=== PATIENT | female | born 1970 | race Hispanic/Latino ===

== ENCOUNTER 2018-10-08 20:20 | Inpatient (IN) | payer SELFPAY ==
[2018-10-08] MEDS ORDERED: LEVALBUTEROL 1.25 MG/3 ML NEB ONE ×2 (20:35→20:36)
[2018-10-08] MEDS ORDERED: DEXAMETHASONE 4 MG/ML VIAL ONE (20:39)
[2018-10-08] MEDS ORDERED: ALBUTEROL 2.5 MG/3 ML NEB SOL ONE (20:39)
[2018-10-08] MEDS ORDERED: IPRATROPIUM BROM 0.5MG/2.5ML ONE (20:40)
[2018-10-08] MEDS ORDERED: CEFTRIAXONE/SWI 1gm 1 GM/10 ML SYR ONE (20:40)
[2018-10-08] MEDS ORDERED: AZITHROMYCIN 500 MG/250 ML BAG ONE (20:41)
[2018-10-08] MEDS ORDERED: METHYLPREDNISOLONE 125 MG INJ ONE (20:41)
--- NOTE | 2018-10-08 20:41 | EDPHYS ---
Physician Documentation [facility] Name: Katelyn Calderón Age: 47 yrs Sex: Female : 1970 Arrival Date: 10/08/2018 Time: 20:21 Bed 3 Private MD: ED Physician Ky Díaz HPI: 10/08 20:31 This 47 yrs old Female presents to ER via Unassigned with complaints of khalida asthma, dyspnea. 20:31 The patient has shortness of breath at rest, with light activity. Onset: The khalida symptoms/episode began/occurred today. Duration: The symptoms are continuous, and are steadily getting worse. The patient's shortness of breath is aggravated by exertion, light activity, supine position, talking, walking, is alleviated by inhaler, nebulizer treatment, rest, sitting up, application of supplemental oxygen. The patient or guardian reports cough, difficulty breathing. Onset: The symptoms/episode began/occurred 1 day(s) ago. Modifying factors: The symptoms are alleviated by changing position, the symptoms are aggravated by nothing. Associated signs and symptoms: The patient has no apparent associated signs or symptoms. Severity of symptoms: At their worst the symptoms were moderate in the emergency department the symptoms are unchanged. Historical: - Allergies: 20:40 No Known Allergies; ea - Home Meds: 20:40 Ventolin HFA 90 mcg/actuation Nebulizer HFAA [Active]; Albuterol Nebulizer [Active]; ea - PSHx: 20:41 ; ea - Immunization history:: Adult Immunizations up to date. - Social history:: Smoking status: Patient/guardian denies using tobacco. - Family history:: not pertinent. - Ebola Screening: : No symptoms or risks identified at this time. ROS: 20:31 Constitutional: Negative for fever, chills, and weight loss, Eyes: Negative for injury, khalida pain, redness, and discharge, ENT: Negative for injury, pain, and discharge, Neck: Negative for injury, pain, and swelling, Cardiovascular: Negative for chest pain, palpitations, and edema, Abdomen/GI: Negative for abdominal pain, nausea, vomiting, diarrhea, and constipation, Back: Negative for injury and pain, : Negative for injury, bleeding, discharge, and swelling, MS/Extremity: Negative for injury and deformity, Skin: Negative for injury, rash, and discoloration, Neuro: Negative for headache, weakness, numbness, tingling, and seizure, Psych: Negative for depression, anxiety, suicide ideation, homicidal ideation, and hallucinations, Allergy/Immunology: Negative for hives, rash, and allergies, Endocrine: Negative for neck swelling, polydipsia, polyuria, polyphagia, and marked weight changes. 20:31 Respiratory: Positive for cough, shortness of breath, wheezing, inspiratory, expiratory. Exam: 20:31 Constitutional: This is a well developed, well nourished patient who is awake, alert, khalida and in no acute distress. Head/Face: Normocephalic, atraumatic. Eyes: Pupils equal round and reactive to light, extra-ocular motions intact. Lids and lashes normal. Conjunctiva and sclera are non-icteric and not injected. Cornea within normal limits. Periorbital areas with no swelling, redness, or edema. ENT: Nares patent. No nasal discharge, no septal abnormalities noted. Tympanic membranes are normal and external auditory canals are clear. Oropharynx with no redness, swelling, or masses, exudates, or evidence of obstruction, uvula midline. Mucous membranes moist. Neck: Trachea midline, no thyromegaly or masses palpated, and no cervical lymphadenopathy. Supple, full range of motion without nuchal rigidity, or vertebral point tenderness. No Meningismus. Chest/axilla: Normal chest wall appearance and motion. Nontender with no deformity. No lesions are appreciated. Cardiovascular: Regular rate and rhythm with a normal S1 and S2. No gallops, murmurs, or rubs. Normal PMI, no JVD. No pulse deficits. Abdomen/GI: Soft, non-tender, with normal bowel sounds. No distension or tympany. No guarding or rebound. No evidence of tenderness throughout. Back: No spinal tenderness. No costovertebral tenderness. Full range of motion. Female : Normal external genitalia. Skin: Warm, dry with normal turgor. Normal color with no rashes, no lesions, and no evidence of cellulitis. MS/ Extremity: Pulses equal, no cyanosis. Neurovascular intact. Full, normal range of motion. Neuro: Awake and alert, GCS 15, oriented to person, place, time, and situation. Cranial nerves II-XII grossly intact. Motor strength 5/5 in all extremities. Sensory grossly intact. Cerebellar exam normal. Normal gait. Psych: Awake, alert, with orientation to person, place and time. Behavior, mood, and affect are within normal limits. 20:31 Respiratory: mild respiratory distress is noted, moderate respiratory distress is noted, Respirations: normal, no acute changes, Breath sounds: are clear throughout, bronchial sounds, that are mild, decreased breath sounds, that are mild, rhonchi, that are mild. Vital Signs: 20:30 BP 109 / 66; Pulse 135; Resp 25; Temp 99.8(A); Pulse Ox 100% 4% ; Weight 63.5 kg; ea Height 5 ft. (152.40 cm); 21:00 BP 112 / 73; Pulse 127; Resp 17; Pulse Ox 100% on Nebulizer Mask; ea 22:45 BP 104 / 56; Pulse 105; Resp 17; Temp 97.6; Pulse Ox 96% ; Pain 0/10; ea 20:30 Body Mass Index 27.34 (63.50 kg, 152.40 cm) ea MDM: 20:26 Patient medically screened. [facility] 20:34 Data reviewed: vital signs, nurses notes, lab test result(s), EKG, radiologic studies, khalida plain films. 10/08 20:31 Order name: Basic Metabolic Panel; Complete Time: 22:08 [facility] 10/08 20:31 Order name: CBC with Diff; Complete Time: 22:08 [facility] 10/08 20:31 Order name: LFT's; Complete Time: 22:08 [facility] 10/08 20:31 Order name: Magnesium; Complete Time: 22:08 [facility] 10/08 20:31 Order name: NT PRO-BNP; Complete Time: 22:08 [facility] 10/08 20:31 Order name: PT-INR; Complete Time: 22:08 [facility] 10/08 20:31 Order name: Troponin (emerg Dept Use Only); Complete Time: 22:08 [facility] 10/08 20:31 Order name: XRAY Chest (1 view) [facility] 10/08 20:31 Order name: Blood Culture Adult (2) [facility] 10/08 21:22 Order name: Flu ms 10/08 22:08 Order name: Influenza Screen (A ; Complete Time: 22:08 EDMS 10/08 20:31 Order name: EKG; Complete Time: 20:40 [facility] 10/08 20:31 Order name: Cardiac monitoring; Complete Time: 20:44 [facility] 10/08 20:31 Order name: EKG - Nurse/Tech; Complete Time: 20:44 [facility] 10/08 20:31 Order name: IV Saline Lock; Complete Time: 20:44 [facility] 10/08 20:31 Order name: Labs collected and sent; Complete Time: 21:04 [facility] 10/08 20:31 Order name: O2 Per Protocol; Complete Time: 20:44 [facility] 10/08 20:31 Order name: O2 Sat Monitoring; Complete Time: 20:44 [facility] 10/08 20:31 Order name: Urine Dipstick-Ancillary (obtain specimen); Complete Time: 23:03 [facility] 10/08 20:31 Order name: Urine Test (obtain specimen); Complete Time: 23:03 [facility] 10/08 20:44 Order name: CONS Physician Consult EDMS Administered Medications: 20:30 Drug: Xopenex (3) 1.25 mg Route: Inhalation; ea 21:02 Follow up: Response: Marked relief of symptoms; Wheezing diminished ea 20:40 Drug: SOLU-Medrol 125 mg Route: IVP; Site: right antecubital; ea 21:30 Follow up: Response: No adverse reaction rr5 20:40 Drug: Decadron - Dexamethasone 10 mg Route: IVP; Site: right antecubital; ao 21:30 Follow up: Response: No adverse reaction ea 20:51 Not Given (HR 135. Ordered different medications ): Albuterol - atroVENT (3:1) (2.5 mg ao - 0.5 mg) 3 ml Nebulizer once 20:52 Drug: Zofran 4 mg Route: IVP; Site: right antecubital; ao 21:30 Follow up: Response: No adverse reaction; Nausea is increased ea 20:55 Drug: Rocephin - (cefTRIAXone) 1 grams Route: IVPB; Infused Over: 30 mins; Site: right ea antecubital; 21:30 Follow up: Response: No adverse reaction; IV Status: Completed infusion rr5 20:55 Drug: AtroVENT Aerosol 0.5 mg {Note: BY RT.} Route: Inhalation; ao 21:02 Drug: Zithromax 500 mg Route: IVPB; Infused Over: 1 hrs; Site: right antecubital; ea 22:47 Follow up: Response: No adverse reaction; IV Status: Completed infusion rr5 22:28 Drug: Potassium Effervescent Tablet 25 mEq Route: PO; ea 23:00 Follow up: Response: No adverse reaction ea Disposition: 10/08/18 20:40 Hospitalization ordered by Wilber Sahni for Inpatient Admission. Preliminary diagnosis are Asthma, Dyspnea, Hypokalemia. - Bed requested for Telemetry/MedSurg (Inpatient). - Status is Inpatient Admission. ea - Condition is Stable. - Problem is new. - Symptoms have improved. UTI on Admission? No Signatures: Dispatcher [employer] EDMS Haley Recinos RN RN Ky Bonilla MD MD cha Ortiz, Alex, RN RN Chiqui Johansen RN Geovanny Pompa ea, RN rr5 Corrections: (The following items were deleted from the chart) 22:10 20:40 Hospitalization Ordered by Wilber Sahni MD for Inpatient Admission. Preliminary [facility] diagnosis is Asthma; Dyspnea. Bed requested for Telemetry/MedSurg (Inpatient). Status is Inpatient Admission. Condition is Stable. Problem is new. Symptoms have improved. UTI on Admission? No. khalida 22:35 22:10 10/08/2018 20:40 Hospitalization Ordered by Wilber Sahni MD for Inpatient kl Admission. Preliminary diagnosis is Asthma; Dyspnea; Hypokalemia. Bed requested for Telemetry/MedSurg (Inpatient). Status is Inpatient Admission. Condition is Stable. Problem is new. Symptoms have improved. UTI on Admission? No. khalida 23:15 22:35 10/08/2018 20:40 Hospitalization Ordered by Wilber Sahni MD for Inpatient ea Admission. Preliminary diagnosis is Asthma; Dyspnea; Hypokalemia. Bed requested for Telemetry/MedSurg (Inpatient). Status is Inpatient Admission. Condition is Stable. Problem is new. Symptoms have improved. UTI on Admission? No. adrienne
--- NOTE | 2018-10-08 20:41 | ER ---
Nurse's Notes [facility] Name: Katelyn Calderón Age: 47 yrs Sex: Female : 1970 Arrival Date: 10/08/2018 Time: 20:21 Bed 3 Private MD: Diagnosis: Asthma;Dyspnea;Hypokalemia Presentation: 10/08 20:30 Presenting complaint: EMS states: Called to pt's home family reported pt was ea complaining of having a hard time breathing that started around 5 PM and got worse. EMS noted stridor , pt sats decreased when placed on 4 L of n/c, pt was placed on non rebreathe. 20:36 Transition of care: patient was not received from another setting of care. Onset of ea symptoms was October 08, 2018. Risk Assessment: Do you want to hurt yourself or someone else? Patient reports no desire to harm self or others. Initial Sepsis Screen: Does the patient meet any 2 criteria? RR > 20 per min. Temp <36.0*C (96.8*F)) or > 38.3*C (100.9*F). HR > 90 bpm. Does the patient have a suspected source of infection? No. Patient's initial sepsis screen is negative. Care prior to arrival: albuterol and Atrovent, non rebreather. 20:36 Method Of Arrival: EMS: [facility] ea 20:36 Acuity: ZAK 2 ea Historical: - Allergies: 20:40 No Known Allergies; ea - Home Meds: 20:40 Ventolin HFA 90 mcg/actuation Nebulizer HFAA [Active]; Albuterol Nebulizer [Active]; ea - PSHx: 20:41 ; ea - Immunization history:: Adult Immunizations up to date. - Social history:: Smoking status: Patient/guardian denies using tobacco. - Family history:: not pertinent. - Ebola Screening: : No symptoms or risks identified at this time. Screenin:35 Abuse screen: Denies threats or abuse. Nutritional screening: No deficits noted. ea Tuberculosis screening: No symptoms or risk factors identified. Fall Risk None identified. Assessment: 20:22 General: Appears distressed, uncomfortable, ill, Behavior is cooperative, appropriate rr5 for age. Pain: Denies pain. 20:22 Neuro: Level of Consciousness is awake, alert, obeys commands, Oriented to person, rr5 place, time, situation, Appropriate for age Underwater Welder are equal bilaterally Moves all extremities. Full function Gait is steady, Speech. Cardiovascular: Denies chest pain, Capillary refill < 3 seconds Patient's skin is warm and dry. Respiratory: Airway is patent is compromised Respiratory effort is labored, Respiratory pattern is tachypnea Stridor noted. GI: Abdomen is round. : No signs and/or symptoms were reported regarding the genitourinary system. EENT:. Derm: Skin is intact, Skin is dry, Skin is pink, warm \T\ dry. Musculoskeletal: No signs and/or symptoms reported regarding the musculoskeletal system. Circulation, motion, and sensation intact. Capillary refill < 3 seconds, Range of motion: intact in all extremities. 21:37 Reassessment: Patient and/or family updated on plan of care and expected duration. Pain ea level reassessed. Patient is alert, oriented x 3, equal unlabored respirations, skin warm/dry/pink. Patient states feeling better. Patient states symptoms have improved. 22:35 Reassessment: Patient and/or family updated on plan of care and expected duration. Pain rr5 level reassessed. Patient is alert, oriented x 3, equal unlabored respirations, skin warm/dry/pink. Patient states feeling better. Patient states symptoms have improved. 22:43 Reassessment: Report given to Jannette WITT. rr5 23:00 Reassessment: Patient and/or family updated on plan of care and expected duration. Pain ea level reassessed. Patient is alert, oriented x 3, equal unlabored respirations, skin warm/dry/pink. Patient states feeling better. Patient states symptoms have improved. Vital Signs: 20:30 BP 109 / 66; Pulse 135; Resp 25; Temp 99.8(A); Pulse Ox 100% 4% ; Weight 63.5 kg; ea Height 5 ft. (152.40 cm); 21:00 BP 112 / 73; Pulse 127; Resp 17; Pulse Ox 100% on Nebulizer Mask; ea 22:45 BP 104 / 56; Pulse 105; Resp 17; Temp 97.6; Pulse Ox 96% ; Pain 0/10; ea 20:30 Body Mass Index 27.34 (63.50 kg, 152.40 cm) ea ED Course: 20:21 Patient arrived in ED. al2 20:22 Geovanny Hazel RN is Primary Nurse. rr5 20:26 Ky Díaz MD is Attending Physician. khalida 20:30 Arm band placed on right wrist. Patient placed in an exam room, on a stretcher, on ea oxygen, on cardiac exercise specialist, on pulse oximetry. 20:30 Inserted saline lock: 20 gauge in right antecubital area, using aseptic technique. ea Blood collected. 20:36 Wilber Sahni MD is Hospitalizing Provider. khalida 20:36 Patient has correct armband on for positive identification. Bed in low position. Call ea light in reach. Side rails up X2. 20:38 Triage completed. ea 22:33 No provider procedures requiring assistance completed. Patient admitted, IV remains in rr5 place. Administered Medications: 20:30 Drug: Xopenex (3) 1.25 mg Route: Inhalation; ea 21:02 Follow up: Response: Marked relief of symptoms; Wheezing diminished ea 20:40 Drug: SOLU-Medrol 125 mg Route: IVP; Site: right antecubital; ea 21:30 Follow up: Response: No adverse reaction rr5 20:40 Drug: Decadron - Dexamethasone 10 mg Route: IVP; Site: right antecubital; ao 21:30 Follow up: Response: No adverse reaction ea 20:51 Not Given (HR 135. Ordered different medications ): Albuterol - atroVENT (3:1) (2.5 mg ao - 0.5 mg) 3 ml Nebulizer once 20:52 Drug: Zofran 4 mg Route: IVP; Site: right antecubital; ao 21:30 Follow up: Response: No adverse reaction; Nausea is increased ea 20:55 Drug: Rocephin - (cefTRIAXone) 1 grams Route: IVPB; Infused Over: 30 mins; Site: right ea antecubital; 21:30 Follow up: Response: No adverse reaction; IV Status: Completed infusion rr5 20:55 Drug: AtroVENT Aerosol 0.5 mg {Note: BY RT.} Route: Inhalation; ao 21:02 Drug: Zithromax 500 mg Route: IVPB; Infused Over: 1 hrs; Site: right antecubital; ea 22:47 Follow up: Response: No adverse reaction; IV Status: Completed infusion rr5 22:28 Drug: Potassium Effervescent Tablet 25 mEq Route: PO; ea 23:00 Follow up: Response: No adverse reaction ea Outcome: 20:40 Decision to Hospitalize by Provider. khalida 22:44 Condition: stable rr5 22:44 Instructed on the need for admit, Demonstrated understanding of instructions. 22:59 Admitted to Med/surg accompanied by tech, via wheelchair, room 417, with chart, Report ea called to Jannette WITT on fourth floor 23:15 Patient left the ED. ea Signatures: Ky Díaz MD MD cha Ortiz, Alex, RN RN Chiqui Johansen, RN RN Alena Joseph Raymond, RN RN rr5 Corrections: (The following items were deleted from the chart) 20:36 20:22 General: Appears in no apparent distress. comfortable, Behavior is calm, rr5 cooperative, appropriate for age, rr5 20:36 20:22 Respiratory: Airway is patent is compromised Respiratory effort is even, rr5 unlabored, Respiratory pattern is regular, symmetrical, rr5 21:00 20:22 Pain: Denies pain. rr5 rr5 21:00 20:22 Neuro: Level of Consciousness is awake, alert, obeys commands, Oriented to rr5 person, place, time, situation, Appropriate for age Underwater Welder are equal bilaterally Moves all extremities. Full function Gait is steady, Speech Pupils are PERRLA, Reports tired. rr5 23:01 22:45 BP 104 / 56; Pulse 105bpm; Resp 17bpm; Pulse Ox 96%; rr5 ea
[2018-10-08] MEDS ORDERED: ONDANSETRON 4 MG/2 ML VIAL ONE (21:03)
[2018-10-08 21:05] LABS: Absolute Lymphocytes (CBC) 1.7 K/uL (0.7-4.9); Absolute Monocytes 0.9 K/uL (0.1-1.3); Basophils % 0.5 % (0-1.3); Eosinophils % 7.7 % (0-4.4); Hematocrit 39.1 % (36.0-45.0); Lymphocytes % 12.3 % (15.3-44.8); MCV 86.7 fL (80-100); MPV 9.5 fL (7.6-11.3); Monocytes % 6.7 % (3.3-12.3); RBC Red Blood Cell Count 4.51 M/uL (3.86-4.86)
[2018-10-08 21:06] LABS: Protime INR 1.18
[2018-10-08 21:21] LABS: ALT/SGPT 33 U/L (12-78); AST/SGOT 22 U/L (15-37); Albumin 4.1 g/dL (3.4-5.0); Alkaline Phosphatase 94 U/L (45-117); BUN Blood Urea Nitrogen 14 mg/dL (7-18); Bicarbonate 23 mmol/L (21-32); Bilirubin Direct 0.1 mg/dL (0-0.2); Bilirubin Total 0.4 mg/dL (0.2-1.0); Glucose Level 117 mg/dL (74-106); Magnesium 2.2 mg/dL (1.8-2.4); NT PRO-BNP 81 pg/mL (<125); Potassium 3.4 mmol/L (3.5-5.1); Protein, Total 8.6 g/dL (6.4-8.2); Sodium Level 138 mmol/L (136-145); Troponin (Emerg Dept Use Only) < 0.02 ng/mL (0.0-0.045)
[2018-10-08] MEDS ORDERED: POTASSIUM 25 MEQ EFFERV TAB ONE (22:29)
--- NOTE | 2018-10-08 22:46 | P.HP ---
Certification for Inpatient Patient admitted to: Inpatient With expected LOS: >2 Midnights Practitioner: I am a practitioner with admitting privileges, knowledge of patient current condition, hospital course, and medical plan of care. Services: Services provided to patient in accordance with Admission requirements found in Title 42 Section 412.3 of the Code of Federal Regulations Patient History Date of Service: 10/08/18 Reason for admission: Asthma exacerbation History of Present Illness: Ms Calderón is a 47-year-old woman with history of intermittent asthma start about 3 days ago with progressive shortness of breath associated with dry cough. She stated that has had subjective fever. Her symptoms were aggravated by ambulation and light activity. Today she came to ER because her shortness of breath got worse. Lab work remarkable for leukocytosis 13.7 K, lactate and procalcitonin are still pending. Chest x-ray showed not acute abnormality. At my encounter, the patient started feeling better already, she was in no distress Home medications list reviewed: Yes - Past Medical/Surgical History -: Intermittent asthma Past Surgical History: Reviewed- Non-Contributory - Family History Family History: Reviewed- Non-Contributory - Social History Smoking Status: Never smoker Alcohol use: No CD- Drugs: No Place of Residence: Home Review of Systems 10-point ROS is otherwise unremarkable Physical Examination - Physical Exam General: Alert, In no apparent distress HEENT: Atraumatic, PERRLA, Mucous membr. moist/pink, EOMI, Sclerae nonicteric Neck: Supple, 2+ carotid pulse no bruit, No LAD, Without JVD or thyroid abnormality Respiratory: Diminished, Expiratory wheezes, Rhonchi/gurgles Cardiovascular: Regular rate/rhythm, Normal S1 S2 Gastrointestinal: Normal bowel sounds, No tenderness Musculoskeletal: No tenderness Integumentary: No rashes Neurological: Normal speech, Normal strength at 5/5 x4 extr, Normal tone, Normal affect Lymphatics: No axilla or inguinal lymphadenopathy - Studies Laboratory Data (last 24 hrs) 10/08/18 20:30: PT 13.9 H, INR 1.18 10/08/18 20:30: WBC 13.7 H, Hgb 13.1, Hct 39.1, Plt Count 245 10/08/18 20:30: Sodium 138, Potassium 3.4 L, BUN 14, Creatinine 0.90, Glucose 117 H, Magnesium 2.2, Total Bilirubin 0.4, AST 22, ALT 33, Alkaline Phosphatase 94 Assessment and Plan - Problems (Diagnosis) (1) Intermittent asthma with acute exacerbation Current Visit: Yes Status: Acute Qualifiers: Asthma severity: mild Qualified Code(s): J45.21 - Mild intermittent asthma with (acute) exacerbation - Plan The patient will be admitted to the hospital due to intermittent asthma exacerbation. She may have a viral versus bacterial infection. Influenza test negative. Will give empiric antibiotics, IV steroids, around the clock breathing treatment. - Advance Directives Does patient have a Living Will: No Does patient have a Durable POA for Healthcare: No - Code Status/Comfort Care Code Status Assessed: Yes Code Status: Full Code
[2018-10-08] MEDS ORDERED: ONDANSETRON 4 MG/2 ML VIAL IV PRN (23:41)
[2018-10-09] MEDS: ALBUTEROL 2.5 MG/3 ML NEB SOL NEB SCH ×6 (00:33→19:54)
[2018-10-09] MEDS: IPRATROPIUM BROM 0.5MG/2.5ML NEB SCH ×6 (00:33→19:54)
[2018-10-09] MEDS: METHYLPREDNISOLONE 40 MG INJ IV SCH ×2 (01:08→05:19)
[2018-10-09] MEDS: NA CHLORIDE 0.9% 1,000 ML IV SCH ×3 (01:09→17:23)
[2018-10-09] MEDS ORDERED: NA CHLORIDE 0.9% 1,000 ML IV ONE ×2 (04:53→05:25)
[2018-10-09 05:24] LABS: Absolute Lymphocytes (CBC) 0.6 K/uL (0.7-4.9); Absolute Monocytes 0.1 K/uL (0.1-1.3); Basophils % 0.1 % (0-1.3); Hematocrit 34.1 % (36.0-45.0); Lymphocytes % 5.3 % (15.3-44.8); MCH 29.9 pg (27.0-35.0); MCV 87.6 fL (80-100); MPV 9.7 fL (7.6-11.3); Monocytes % 0.6 % (3.3-12.3); RBC Red Blood Cell Count 3.89 M/uL (3.86-4.86)
[2018-10-09 05:37] LABS: Potassium 3.8 mmol/L (3.5-5.1)
[2018-10-09 06:11] LABS: Blood Morphology Comment NOT SEEN (NOT SEEN); Platelet Estimate ADEQ
[2018-10-09] MEDS ORDERED: POTASSIUM 25 MEQ EFFERV TAB PO ONE (07:00)
[2018-10-09] MEDS: ENOXAPARIN 40 MG/0.4 ML SQ SCH (08:27)
[2018-10-09] MEDS ORDERED: CEFTRIAXONE 1 GM/NS 50 ML 1 GM/50 ML BAG IV SCH (09:00)
[2018-10-09] MEDS ORDERED: AZITHROMYCIN IV 500 MG in NA CHLORIDE 0.9% 250 ML IVPB SCH ×2 (09:00→21:00)
[2018-10-09] MEDS ORDERED: AZITHROMYCIN 250 MG TAB PO SCH (09:00)
--- NOTE | 2018-10-09 10:05 | P.PN ---
Subjective Date of Service: 10/09/18 Chief Complaint: Asthma exacerbation Subjective: Tolerating diet, Ambulating, Improving, Working w/ PT, Doing well Review of Systems 10-point ROS is otherwise unremarkable Physical Examination - Vital Signs Temperature: 97.8 F Blood Pressure: 94/48 Pulse: 114 Respirations: 16 Pulse Ox (%): 95 - Physical Exam General: Alert, In no apparent distress HEENT: Atraumatic, PERRLA, EOMI Neck: Supple, JVD not distended Respiratory: Clear to auscultation bilaterally, Normal air movement Cardiovascular: Regular rate/rhythm, Normal S1 S2 Gastrointestinal: Normal bowel sounds, No tenderness Musculoskeletal: No tenderness Integumentary: No rashes Neurological: Normal speech, Normal tone, Normal affect Lymphatics: No axilla or inguinal lymphadenopathy - Studies Laboratory Data (last 24 hrs) 10/08/18 20:30: PT 13.9 H, INR 1.18 10/08/18 20:30: WBC 13.7 H, Hgb 13.1, Hct 39.1, Plt Count 245 10/08/18 20:30: Sodium 138, Potassium 3.4 L, BUN 14, Creatinine 0.90, Glucose 117 H, Magnesium 2.2, Total Bilirubin 0.4, AST 22, ALT 33, Alkaline Phosphatase 94 Medications List Reviewed: Yes Assessment And Plan - Current Problems (Diagnosis) (1) Intermittent asthma with acute exacerbation Current Visit: Yes Status: Acute Plan: Acute asthma exacerbation most likely secondary to viral illness -duo nebs, steroids, oxygen for now -pulmonology consulted. Awaiting recommendations at this time. Qualifiers: Asthma severity: mild Qualified Code(s): J45.21 - Mild intermittent asthma with (acute) exacerbation Discharge Plan: Home Plan to discharge in: 24 Hours - Code Status/Comfort Care Code Status Assessed: Yes Critical Care: No
--- NOTE | 2018-10-09 11:24 | RAD REPORT ---
EXAM DESCRIPTION: RAD - Chest Single View - 10/08/2018 9:59 pm CLINICAL HISTORY: Cough;Congestion Chest pain. COMPARISON: No comparisons FINDINGS: Portable technique limits examination quality. The lungs are grossly clear. The heart is normal in size. No displaced fractures. IMPRESSION: No acute intrathoracic process suspected.
[2018-10-09] MEDS ORDERED: Levofloxacin500mg IV 500 MG/100 ML BAG IV SCH (15:00)
[2018-10-09] MEDS: predniSONE 10 MG TAB PO SCH (20:23)
[2018-10-09] MEDS ORDERED: CEFTRIAXONE/SWI 1gm 1 GM/10 ML SYR IV SCH (21:00)
[2018-10-09] MEDS: ACETAMINOPHEN 500 MG TAB PO PRN (23:32)
[2018-10-10] MEDS: ALBUTEROL 2.5 MG/3 ML NEB SOL NEB SCH ×3 (00:40→07:53)
[2018-10-10] MEDS: IPRATROPIUM BROM 0.5MG/2.5ML NEB SCH ×7 (00:40→23:15)
[2018-10-10] MEDS: NA CHLORIDE 0.9% 1,000 ML IV SCH ×2 (03:18→09:40)
[2018-10-10 04:51] LABS: BUN Blood Urea Nitrogen 12 mg/dL (7-18); Bicarbonate 23 mmol/L (21-32); Glucose Level 152 mg/dL (74-106); Potassium 4.3 mmol/L (3.5-5.1); Sodium Level 142 mmol/L (136-145)
--- NOTE | 2018-10-10 05:53 | EKG ---
Test Date: 2018-10-08 Test Time: 20:39:37 Fortune Cookie Maker: NATALY MEASUREMENT RESULTS: Intervals: Rate: 124 OK: 134 QRSD: 80 QT: 322 QTc: 462 [place]: P: 74 OK: 134 QRS: 35 T: 51 INTERPRETIVE STATEMENTS: Sinus tachycardia with occasional premature ventricular complexes Possible Left atrial enlargement Borderline ECG No previous ECG available for comparison Electronically Signed On 10-10-18 05:52:44 INDOOR PLANT TECHNICIAN by Bay Hernandez
--- NOTE | 2018-10-10 11:20 | P.CNS ---
Date of Consult: 10/10/18 Chief Complaint: Asthma exacerbation History of Present Illness: Patient is 47 years of age with a history of intermittent asthma she uses Ventolin and albuterol nebulizer p.r.n. as needed does not have any insurance gets medication from a [facility]. Admitted with worsening dyspnea over the past 2 days currently doing much better problems are worse in the winter denies any cough sputum hemoptysis or chest pain feeling better Allergies No Known Allergies Allergy (Verified 10/08/18 23:18) Home Medications: Albuterol Inhaler [Ventolin Inhaler*] 2 puff IH PRN PRN 10/09/18 Albuterol Sulfate [Albuterol Sulfate 0.083% Neb Soln] 3 ml NEB BID 10/09/18 - Past Medical/Surgical History Diabetic: No -: Intermittent asthma - Family History Father History Unknown: Yes Mother Medical History: Hypertension - Social History Alcohol use: No CD- Drugs: No Caffeine use: Yes Place of Residence: Home Review of Systems 10-point ROS is otherwise unremarkable Physical Examination Temp Pulse Resp BP Pulse Ox 97.9 F 96 H 18 105/53 L 99 10/10/18 08:00 10/10/18 08:00 10/10/18 08:00 10/10/18 08:00 10/10/18 08:00 General: Alert, Oriented x3 HEENT: Atraumatic Neck: Supple Respiratory: Expiratory wheezes Cardiovascular: No edema, Regular rate/rhythm - Problems (1) Intermittent asthma with acute exacerbation Current Visit: Yes Status: Acute Plan: Patient is 47 years of age with a history of intermittent asthma using Ventolin and albuterol only on a p.r.n. basis for [place] does not have any insurance is currently feeling better room-air oxygenation is stable patient can be discharged home on prednisone 10 mg a day once a day for about 2 weeks he needs to take and the inhaled steroid please give her a prescription for Symbicort 160 2 puffs twice a day she could [facility] is 1 from [facility] and come by my office to miner pick a sample can use Ventolin or Combivent on a p.r.n. basis in addition to the nebulizer labs unremarkable chest x-rays clear patient can be discharged home no antibiotics needed Qualifiers: Asthma severity: mild Qualified Code(s): J45.21 - Mild intermittent asthma with (acute) exacerbation
[2018-10-10] MEDS ORDERED: ALBUTEROL 2.5 MG/3 ML NEB SOL NEB PRN (11:21)
[2018-10-10] MEDS: predniSONE 10 MG TAB PO SCH ×2 (11:22→22:33)
[2018-10-10] MEDS: ENOXAPARIN 40 MG/0.4 ML SQ SCH (11:22)
[2018-10-10] MEDS: DULERA 200/5 (MOMETASONE/FORMOTEROL) INHALER IH SCH ×2 (14:24→22:35)
--- NOTE | 2018-10-10 14:42 | P.PN ---
Subjective Date of Service: 10/10/18 Chief Complaint: Asthma exacerbation Subjective: Tolerating diet, Ambulating, Improving, Doing well Review of Systems 10-point ROS is otherwise unremarkable Physical Examination - Vital Signs Temperature: 98.3 F Blood Pressure: 107/64 Pulse: 106 Respirations: 18 Pulse Ox (%): 97 - Physical Exam General: Alert, In no apparent distress HEENT: Atraumatic, PERRLA, EOMI Neck: Supple, JVD not distended Respiratory: Clear to auscultation bilaterally, Normal air movement Cardiovascular: Regular rate/rhythm, Normal S1 S2 Gastrointestinal: Normal bowel sounds, No tenderness Musculoskeletal: No tenderness Integumentary: No rashes Neurological: Normal speech, Normal tone, Normal affect Lymphatics: No axilla or inguinal lymphadenopathy - Studies Medications List Reviewed: Yes Assessment And Plan - Current Problems (Diagnosis) (1) Intermittent asthma with acute exacerbation Current Visit: Yes Status: Acute Plan: Acute asthma exacerbation most likely secondary to viral illness -duo nebs, steroids, oxygen for now -pulmonology consulted. Reccs appreciated Qualifiers: Asthma severity: mild Qualified Code(s): J45.21 - Mild intermittent asthma with (acute) exacerbation (2) Elevated lactic acid level Current Visit: Yes Status: Acute Plan: LA elevated today -Will repeat -IV fluids for now -Sepsis w/u negative thus far Discharge Plan: Home Plan to discharge in: 48 Hours - Code Status/Comfort Care Code Status Assessed: Yes Critical Care: No
[2018-10-10] MEDS: ACETAMINOPHEN 500 MG TAB PO PRN (23:44)
[2018-10-11] MEDS: IPRATROPIUM BROM 0.5MG/2.5ML NEB SCH ×3 (03:50→11:40)
[2018-10-11 06:01] LABS: Magnesium 2.3 mg/dL (1.8-2.4); Potassium 4.3 mmol/L (3.5-5.1)
[2018-10-11] MEDS: DULERA 200/5 (MOMETASONE/FORMOTEROL) INHALER IH SCH (09:25)
[2018-10-11] MEDS: ENOXAPARIN 40 MG/0.4 ML SQ SCH (09:26)
[2018-10-11] MEDS: predniSONE 10 MG TAB PO SCH (09:26)
--- NOTE | 2018-10-11 15:32 | P.DS ---
Admission Date: 10/08/18 Discharge Date: 10/11/18 Disposition: ROUTINE DISCHARGE Discharge Condition: GOOD Reason for Admission: Asthma exacerbation Consultations: Pulmonology - Dr Scott - Problems (1) Intermittent asthma with acute exacerbation Onset Date: 10/11/18 Status: Acute Qualifiers: Asthma severity: mild Qualified Code(s): J45.21 - Mild intermittent asthma with (acute) exacerbation (2) Elevated lactic acid level Onset Date: 10/11/18 Status: Acute Brief History of Present Illness: Ms Calderón is a 47-year-old woman with history of intermittent asthma start about 3 days ago with progressive shortness of breath associated with dry cough. She stated that has had subjective fever. Her symptoms were aggravated by ambulation and light activity. Today she came to ER because her shortness of breath got worse. Lab work remarkable for leukocytosis 13.7 K, lactate and procalcitonin are still pending. Chest x-ray showed not acute abnormality. At my encounter, the patient started feeling better already, she was in no distress Hospital Course: Overall during the hospital stay patient remained stable Patient was admitted to the hospital for acute exacerbation of her asthma. Patient was started on duo nebs, steroids, oxygen here. Was weaned off to room air. Pulmonology was consulted who recommended the patient can be discharged home and follow up with them outpatient about 1-2 weeks. Patient was asked to continue taking Dulera and was asked to continue taking Proventil for emergency use. No other complaints to offer at this time patient was doing well overall and thus was discharged home under stable condition. Vital Signs/Physical Exam: Temp Pulse Resp BP Pulse Ox 97.7 F 84 18 118/64 97 10/11/18 12:00 10/11/18 12:00 10/11/18 12:00 10/11/18 12:00 10/11/18 12:00 General: Alert, In no apparent distress HEENT: Atraumatic, PERRLA, EOMI Neck: Supple, JVD not distended Respiratory: Clear to auscultation bilaterally, Normal air movement Cardiovascular: Regular rate/rhythm, Normal S1 S2 Gastrointestinal: Normal bowel sounds, No tenderness Musculoskeletal: No tenderness Integumentary: No rashes Neurological: Normal speech, Normal tone, Normal affect Lymphatics: No axilla or inguinal lymphadenopathy Laboratory Data at Discharge: WBC 10.6 K/uL (4.3-10.9) D 10/09/18 04:43 Hgb 11.6 g/dL (12.0-15.0) L 10/09/18 04:43 Hct 34.1 % (36.0-45.0) L 10/09/18 04:43 Plt Count 225 K/uL (152-406) 10/09/18 04:43 PT 13.9 SECONDS (9.5-12.5) H 10/08/18 20:30 INR 1.18 10/08/18 20:30 Sodium 138 mmol/L (136-145) 10/11/18 04:56 Potassium 4.3 mmol/L (3.5-5.1) 10/11/18 04:56 BUN 14 mg/dL (7-18) 10/11/18 04:56 Creatinine 0.70 mg/dL (0.55-1.3) 10/11/18 04:56 Glucose 114 mg/dL (74-106) H 10/11/18 04:56 Magnesium 2.3 mg/dL (1.8-2.4) 10/11/18 04:56 Total Bilirubin 0.4 mg/dL (0.2-1.0) 10/08/18 20:30 AST 22 U/L (15-37) 10/08/18 20:30 ALT 33 U/L (12-78) 10/08/18 20:30 Alkaline Phosphatase 94 U/L (45-117) 10/08/18 20:30 Home Medications: Albuterol Inhaler [Ventolin Inhaler*] 2 puff IH PRN PRN 10/09/18 Albuterol Sulfate [Albuterol Sulfate 0.083% Neb Soln] 3 ml NEB BID 10/09/18 predniSONE [Deltasone*] 10 mg PO DAILY #14 tab 10/10/18 New Medications: predniSONE [Deltasone*] 10 mg PO DAILY #14 tab Diet: Regular Activity: Ad chikis Followup: Carlin Mckinnon MD [ACTIVE - CAN ADMIT] - 1-2 Weeks (Follow up in 2 weeks, call to schedule an appointment) CARMEN DESHPANDE [OUTSIDE PHYSICIAN] -
== END 2018-10-11 14:07 | disposition home or self-care (01) | DRG 203 ==
LOC: ER 20:20 → ERHOLD 20:41 → 4TH 22:44
PROVIDERS: ADMIT Internal Medicine; ATTEND Internal Medicine
DX: J45.21 Mild intermittent asthma with (acute) exacerbation (principal); R74.0 Nonspecific elevation of levels of transaminase and lactic acid dehydrogenase [LDH]
CPT/HCPCS: 36415; 71045; 80048; 80076; 83605; 83735; 83880; 84145; 84484; 85025; 85610; 87040; 87804; 93005; 94640; 94760; 96365; 96375; 99285; J0456; J0696; J1650; J2405; J2920; J2930; J7030; J7512; J7606

== ENCOUNTER 2019-12-16 22:29 | Inpatient (IN) | payer SELFPAY ==
[2019-12-16] MEDS ORDERED: dexAMETHasone 10 MG/ML VIAL ONE (22:55)
[2019-12-16] MEDS ORDERED: FAMOTIDINE 20 MG/2 ML VIAL IV ONE (22:56)
[2019-12-16] MEDS ORDERED: IPRATROPIUM BROM 0.5MG/2.5ML ONE (22:56)
[2019-12-16] MEDS ORDERED: LEVALBUTEROL 1.25 MG/3 ML NEB ONE (22:56)
--- NOTE | 2019-12-16 22:58 | EDPHYS ---
Physician Documentation [facility] Name: Katelyn Calderón Age: 49 yrs Sex: Female : 1970 Arrival Date: 12/16/2019 Time: 22:30 Bed 6 Private MD: ED Physician Ky Díaz HPI: 12/16 22:51 This 49 yrs old Female presents to ER via EMS with complaints of Breathing khalida Difficulty. 22:51 The patient has shortness of breath at rest, with light activity. Onset: The khalida symptoms/episode began/occurred 2 day(s) ago. Duration: The symptoms are continuous, and are steadily getting worse. The patient's shortness of breath has no apparent modifying factors. Associated signs and symptoms: The patient has no apparent associated signs or symptoms. Severity of symptoms: At their worst the symptoms were moderate in the emergency department the symptoms are unchanged. The patient has experienced similar episodes in the past, several times. 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 - Coronavirus screen:: The patient has NOT traveled to [place], [place], or [place] in the past 14 days. The patient has NOT had contact with known/suspected case of Coronavirus? Proceed with normal triage procedures. - Social history:: Smoking status: Patient denies any tobacco usage or history of. - Ebola Screening: : No symptoms or risks identified at this time. ROS: 22:52 Constitutional: Negative for fever, chills, and weight loss, Eyes: Negative for injury, khalida pain, redness, and discharge, ENT: Negative for injury, pain, and discharge, Neck: Negative for injury, pain, and swelling, Abdomen/GI: Negative for abdominal pain, nausea, vomiting, diarrhea, and constipation, Back: Negative for injury and pain, : Negative for injury, bleeding, discharge, and swelling, MS/Extremity: Negative for injury and deformity, Skin: Negative for injury, rash, and discoloration, Neuro: Negative for headache, weakness, numbness, tingling, and seizure, Psych: Negative for depression, anxiety, suicide ideation, homicidal ideation, and hallucinations, Allergy/Immunology: Negative for hives, rash, and allergies, Endocrine: Negative for neck swelling, polydipsia, polyuria, polyphagia, and marked weight changes, Hematologic/Lymphatic: Negative for swollen nodes, abnormal bleeding, and unusual bruising. 22:52 Cardiovascular: Positive for palpitations. 22:52 Respiratory: Positive for cough, shortness of breath, wheezing, inspiratory, expiratory. Exam: 22:52 Constitutional: This is a well developed, well nourished patient who is awake, alert, khalida and in no acute distress. Head/Face: Normocephalic, atraumatic. Eyes: Pupils equal round and reactive to light, extra-ocular motions intact. Lids and lashes normal. Conjunctiva and sclera are non-icteric and not injected. Cornea within normal limits. Periorbital areas with no swelling, redness, or edema. ENT: Nares patent. No nasal discharge, no septal abnormalities noted. Tympanic membranes are normal and external auditory canals are clear. Oropharynx with no redness, swelling, or masses, exudates, or evidence of obstruction, uvula midline. Mucous membranes moist. Neck: Trachea midline, no thyromegaly or masses palpated, and no cervical lymphadenopathy. Supple, full range of motion without nuchal rigidity, or vertebral point tenderness. No Meningismus. Chest/axilla: Normal chest wall appearance and motion. Nontender with no deformity. No lesions are appreciated. Abdomen/GI: Soft, non-tender, with normal bowel sounds. No distension or tympany. No guarding or rebound. No evidence of tenderness throughout. Back: No spinal tenderness. No costovertebral tenderness. Full range of motion. Skin: Warm, dry with normal turgor. Normal color with no rashes, no lesions, and no evidence of cellulitis. MS/ Extremity: Pulses equal, no cyanosis. Neurovascular intact. Full, normal range of motion. Neuro: Awake and alert, GCS 15, oriented to person, place, time, and situation. Cranial nerves II-XII grossly intact. Motor strength 5/5 in all extremities. Sensory grossly intact. Cerebellar exam normal. Normal gait. Psych: Awake, alert, with orientation to person, place and time. Behavior, mood, and affect are within normal limits. 22:52 Cardiovascular: Rate: tachycardic, Rhythm: regular, Pulses: Pulses are 4+ in bilateral radial, brachial, femoral, popliteal, posterior tibial and and dorsalis pedis arteries.. Heart sounds: normal, Edema: is not appreciated, JVD: is not appreciated. Vital Signs: 22:48 BP 111 / 79; Pulse 138; Resp 28; Pulse Ox 88% on R/A; Weight 58.97 kg (R); lp1 22:48 Pulse Ox 94% on 3 lpm NC; lp1 23:00 Pulse 120; Resp 20; Pulse Ox 97% on 3 lpm NC; lp1 23:00 Temp 99.1(A); lp1 23:45 Pulse 126; Resp 19 S; Pulse Ox 97% on 3 lpm NC; jd3 23:59 BP 114 / 70; jd3 23:59 BP 114 / 70; Pulse 127; Resp 19; Pulse Ox 95% on R/A; lp1 12/17 00:23 BP 114 / 64; Pulse 128; Resp 16; Pulse Ox 94% on R/A; lp1 MDM: 12/16 22:31 [facility]. [facility] 22:52 Data reviewed: vital signs, nurses notes, lab test result(s), EKG, radiologic studies, [facility] MRI. 12/16 22:49 Order name: Basic Metabolic Panel [facility] 12/16 22:49 Order name: CBC with Diff; Complete Time: 23:45 [facility] 12/16 22:49 Order name: LFT's [facility] 12/16 22:49 Order name: Magnesium; Complete Time: 23:45 [facility] 12/16 22:49 Order name: NT PRO-BNP; Complete Time: 23:45 [facility] 12/16 22:49 Order name: PT-INR; Complete Time: 23:45 [facility] 12/16 22:49 Order name: Troponin (emerg Dept Use Only); Complete Time: 23:45 [facility] 12/16 22:49 Order name: XRAY Chest (1 view) [facility] 12/16 22:49 Order name: Blood Culture Adult (2) [facility] 12/16 22:49 Order name: Influenza Screen (a \T\ B); Complete Time: 23:45 khalida 12/16 22:50 Order name: Basic Metabolic Panel; Complete Time: 23:45 [facility] 12/16 22:50 Order name: Liver (Hepatic) Function; Complete Time: 23:45 [facility] 12/16 22:49 Order name: EKG; Complete Time: 22:50 [facility] 12/16 22:49 Order name: Cardiac monitoring; Complete Time: 23:02 [facility] 12/16 22:49 Order name: EKG - Nurse/Tech; Complete Time: 23:02 [facility] 12/16 22:49 Order name: IV Saline Lock; Complete Time: 23:02 [facility] 12/16 22:49 Order name: Labs collected and sent; Complete Time: 23:20 [facility] 12/16 22:49 Order name: O2 Per Protocol; Complete Time: 23:02 [facility] 12/16 22:49 Order name: O2 Sat Monitoring; Complete Time: 23:02 [facility] Administered Medications: 22:50 Not Given (1L NS hanging per EMS, continued infusion): NS 0.9% 1000 ml IV at 1 bolus lp1 Per protocol; 1000 mL bolus 22:55 Drug: Xopenex 3.75 mg Route: Inhalation; lp1 22:55 Drug: AtroVENT Aerosol 0.5 mg Route: Inhalation; lp1 22:57 Drug: Decadron - Dexamethasone 10 mg Route: IVP; Site: left antecubital; lp1 23:59 Follow up: Response: No adverse reaction lp1 22:57 Drug: Pepcid 20 mg Route: IVP; Site: left antecubital; lp1 23:58 Follow up: Response: No adverse reaction lp1 23:45 Drug: Rocephin 1 grams Route: IV; Rate: per protocol; Site: left antecubital; lp1 23:58 Follow up: IV Status: Completed infusion; IV Intake: 10ml lp1 23:55 Drug: NS 0.9% 1000 ml Route: IV; Rate: 125 ml/hr; Site: left antecubital; lp1 12/17 00:53 Follow up: IV Status: Infusion continued upon admission lp1 12/16 23:55 Drug: Zithromax 500 mg Route: IVPB; Infused Over: 1 hrs; Site: left antecubital; lp1 12/17 00:53 Follow up: IV Status: Infusion continued upon admission lp1 00:23 Drug: Potassium Effervescent Tablet 25 mEq Route: PO; lp1 00:53 Follow up: Response: No adverse reaction lp1 00:23 Drug: Magnesium Sulfate 1 grams Route: IVPB; Infused Over: 1 hrs; Site: right lp1 antecubital; 00:52 Follow up: IV Status: Infusion continued upon admission lp1 Disposition: 12/16/19 22:58 Hospitalization ordered by Daly Washburn for Inpatient Admission. Preliminary diagnosis are Dyspnea, Asthma, Acute upper respiratory infection, unspecified, Hypoxemia, Hypokalemia. - Bed requested for Telemetry/MedSurg (Inpatient). - Status is Inpatient Admission. lp1 - Condition is Fair. - Problem is new. - Symptoms have improved. UTI on Admission? No Signatures: Dispatcher [employer] EDMS Ky Díaz MD MD cha Pena, Laura, RN RN 1 Shalini Adkins RN RN Corrections: (The following items were deleted from the chart) 12/16 23:46 22:58 Hospitalization Ordered by Daly Washburn MD for Inpatient Admission. Preliminary khalida diagnosis is Dyspnea; Asthma; Acute upper respiratory infection, unspecified; Hypoxemia. Bed requested for Telemetry/MedSurg (Inpatient). Status is Inpatient Admission. Condition is Fair. Problem is new. Symptoms have improved. UTI on Admission? No. khalida 12/17 00:03 12/16 23:46 12/16/2019 22:58 Hospitalization Ordered by Daly Washburn MD for Inpatient Admission. Preliminary diagnosis is Dyspnea; Asthma; Acute upper respiratory infection, unspecified; Hypoxemia; Hypokalemia. Bed requested for Telemetry/MedSurg (Inpatient). Status is Inpatient Admission. Condition is Fair. Problem is new. Symptoms have improved. UTI on Admission? No. khalida 12/17 00:53 00:03 12/16/2019 22:58 Hospitalization Ordered by Daly Washburn MD for Inpatient lp1 Admission. Preliminary diagnosis is Dyspnea; Asthma; Acute upper respiratory infection, unspecified; Hypoxemia; Hypokalemia. Bed requested for Telemetry/MedSurg (Inpatient). Status is Inpatient Admission. Condition is Fair. Problem is new. Symptoms have improved. UTI on Admission? No. cg
--- NOTE | 2019-12-16 22:58 | ER ---
Nurse's Notes [facility] Name: Katelyn Calderón Age: 49 yrs Sex: Female : 1970 Arrival Date: 12/16/2019 Time: 22:30 Bed 6 Private MD: Diagnosis: Dyspnea;Asthma;Acute upper respiratory infection, unspecified;Hypoxemia;Hypokalemia Presentation: 12/16 22:46 Presenting complaint: EMS states: Called for shortness of breath, patient took lp1 Albuterol Nebs x3, 3 puffs of inhaler with no relief; Per EMS, patient 89% on neb on arrival, wheezing;. Transition of care: patient was not received from another setting of care. Onset of symptoms was December 16, 2019 at 15:00. Risk Assessment: Do you want to hurt yourself or someone else? Patient reports no desire to harm self or others. Initial Sepsis Screen: Does the patient meet any 2 criteria? RR > 20 per min. HR > 90 bpm. Does the patient have a suspected source of infection? No. Patient's initial sepsis screen is negative. Care prior to arrival: Medication(s) given: Atrovent Neb x 1, Normal saline infusion, 250 ml IV initiated. 20 GA, in the left antecubital area, Oxygen administered. via nasal cannula. 22:46 Method Of Arrival: EMS: [facility] lp1 22:46 Acuity: ZAK 2 lp1 22:48 Care prior to arrival: Medication(s) given: Solu-Medrol 125 mg IV. 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 - Coronavirus screen:: The patient has NOT traveled to [place], [place], or [place] in the past 14 days. The patient has NOT had contact with known/suspected case of Coronavirus? Proceed with normal triage procedures. - Social history:: Smoking status: Patient denies any tobacco usage or history of. - Ebola Screening: : No symptoms or risks identified at this time. Screenin:20 Abuse screen: Denies threats or abuse. Denies injuries from another. Nutritional lp1 screening: No deficits noted. Tuberculosis screening: No symptoms or risk factors identified. Fall Risk None identified. Assessment: 23:00 General: Appears distressed, Behavior is anxious. Pain: Denies pain. Neuro: Level of lp1 Consciousness is awake, alert, obeys commands, Oriented to person, place, situation. Cardiovascular: Patient's skin is warm and dry. Rhythm is sinus tachycardia. Respiratory: Reports shortness of breath at rest Airway is patent Trachea midline Respiratory effort is labored, Respiratory pattern is tachypnea Breath sounds with wheezes bilaterally. Onset: The symptoms/episode began/occurred today, the patient has moderate shortness of breath. GI: Reports nausea. : No signs and/or symptoms were reported regarding the genitourinary system. EENT: No signs and/or symptoms were reported regarding the EENT system. Derm: Skin is pink, warm \T\ dry. Musculoskeletal: No deficits noted. 23:32 Reassessment: Hospitalist at bedside; Patient states feeling better. lp1 23:59 Reassessment: Patient appears in no apparent distress at this time. Patient states lp1 feeling better. Respiratory: Respiratory effort is even, Respiratory pattern is regular, Breath sounds with wheezes bilaterally. 12/17 00:25 Reassessment: Attempted to call report; Nurse will call back. lp1 Vital Signs: 12/16 22:48 BP 111 / 79; Pulse 138; Resp 28; Pulse Ox 88% on R/A; Weight 58.97 kg (R); lp1 22:48 Pulse Ox 94% on 3 lpm NC; lp1 23:00 Pulse 120; Resp 20; Pulse Ox 97% on 3 lpm NC; lp1 23:00 Temp 99.1(A); lp1 23:45 Pulse 126; Resp 19 S; Pulse Ox 97% on 3 lpm NC; jd3 23:59 BP 114 / 70; jd3 23:59 BP 114 / 70; Pulse 127; Resp 19; Pulse Ox 95% on R/A; lp1 12/17 00:23 BP 114 / 64; Pulse 128; Resp 16; Pulse Ox 94% on R/A; lp1 ED Course: 12/16 22:30 Patient arrived in ED. ds1 22:31 Ky Díaz MD is Attending Physician. khalida 22:48 Triage completed. lp1 22:48 Arm band placed on. lp1 22:56 Daly Washburn MD is Hospitalizing Provider. khalida 23:00 Veda Luna RN is Primary Nurse. lp1 23:00 Patient has correct armband on for positive identification. Placed in gown. Bed in low lp1 position. chain carrier on. Pulse ox on. NIBP on. 23:00 Maintain EMS IV. Dressing intact. Site clean \T\ dry. Gauge \T\ site: 20g to L AC. lp 1 23:10 Inserted saline lock: 22 gauge in right antecubital area, using aseptic technique. lp1 Blood collected. 23:10 Initial lab(s) drawn, by me, sent to lab. First set of blood cultures drawn by me. lp1 23:20 XRAY Chest (1 view) In Process Unspecified. EDMS 12/17 00:00 No provider procedures requiring assistance completed. Patient admitted, IV remains in lp1 place. Administered Medications: 12/16 22:50 Not Given (1L NS hanging per EMS, continued infusion): NS 0.9% 1000 ml IV at 1 bolus lp1 Per protocol; 1000 mL bolus 22:55 Drug: Xopenex 3.75 mg Route: Inhalation; lp1 22:55 Drug: AtroVENT Aerosol 0.5 mg Route: Inhalation; lp1 22:57 Drug: Decadron - Dexamethasone 10 mg Route: IVP; Site: left antecubital; lp1 23:59 Follow up: Response: No adverse reaction lp1 22:57 Drug: Pepcid 20 mg Route: IVP; Site: left antecubital; lp1 23:58 Follow up: Response: No adverse reaction lp1 23:45 Drug: Rocephin 1 grams Route: IV; Rate: per protocol; Site: left antecubital; lp1 23:58 Follow up: IV Status: Completed infusion; IV Intake: 10ml lp1 23:55 Drug: NS 0.9% 1000 ml Route: IV; Rate: 125 ml/hr; Site: left antecubital; lp1 12/17 00:53 Follow up: IV Status: Infusion continued upon admission lp1 12/16 23:55 Drug: Zithromax 500 mg Route: IVPB; Infused Over: 1 hrs; Site: left antecubital; lp1 12/17 00:53 Follow up: IV Status: Infusion continued upon admission lp1 00:23 Drug: Potassium Effervescent Tablet 25 mEq Route: PO; lp1 00:53 Follow up: Response: No adverse reaction lp1 00:23 Drug: Magnesium Sulfate 1 grams Route: IVPB; Infused Over: 1 hrs; Site: right lp1 antecubital; 00:52 Follow up: IV Status: Infusion continued upon admission lp1 Intake: 12/16 23:58 IV: 10ml; Total: 10ml. lp1 Outcome: 22:58 Decision to Hospitalize by Provider. khalida 12/17 00:00 Condition: stable lp1 Instructed on the need for admit. 00:52 Admitted to Tele accompanied by tech, family with patient, via wheelchair, room 426, lp1 with chart, Report called to EDAUR Hernandez 00:53 Patient left the ED. lp1 Signatures: Dispatcher [employer] EDKy Palmre MD MD cha Sanford, Demi ds1 Veda Luna RN RN lp1 Dave Aviles RN RN jd3
[2019-12-16 23:27] LABS: Absolute Lymphocytes (CBC) 1.5 K/uL (0.7-4.9); Basophils % 0.6 % (0-1.3); Lymphocytes % 13.1 % (15.3-44.8); MPV 9.6 fL (7.6-11.3); RBC Red Blood Cell Count 4.44 M/uL (3.86-4.86)
[2019-12-16 23:28] LABS: Protime INR 1.15
[2019-12-16] MEDS ORDERED: CEFTRIAXONE/SWI 1gm 1 GM/10 ML SYR ONE (23:37)
[2019-12-16] MEDS ORDERED: NA CHLORIDE 0.9% 1,000 ML ONE (23:37)
[2019-12-16] MEDS ORDERED: AZITHROMYCIN 500 MG INJ IVPB ONE (23:37)
[2019-12-16] MEDS ORDERED: NA CHLORIDE 0.9% 250 ML ONE (23:37)
[2019-12-16 23:43] LABS: ALT/SGPT 28 U/L (12-78); AST/SGOT 16 U/L (15-37); Albumin 3.5 g/dL (3.4-5.0); Alkaline Phosphatase 94 U/L (45-117); BUN Blood Urea Nitrogen 8 mg/dL (7-18); Bicarbonate 25 mmol/L (21-32); Bilirubin Direct 0.1 mg/dL (0-0.2); Bilirubin Total 0.4 mg/dL (0.2-1.0); Glucose Level 125 mg/dL (74-106); Magnesium 1.9 mg/dL (1.8-2.4); NT PRO-BNP 60 pg/mL (<125); Potassium 3.4 mmol/L (3.5-5.1); Protein, Total 7.5 g/dL (6.4-8.2); Sodium Level 139 mmol/L (136-145); Troponin (Emerg Dept Use Only) < 0.02 ng/mL (0.0-0.045)
--- NOTE | 2019-12-16 23:55 | P.HP ---
Certification for Inpatient With expected LOS: >2 Midnights Practitioner: I am a practitioner with admitting privileges, knowledge of patient current condition, hospital course, and medical plan of care. Services: Services provided to patient in accordance with Admission requirements found in Title 42 Section 412.3 of the Code of Federal Regulations Patient History Date of Service: 12/17/19 Reason for admission: asthma exacerbation History of Present Illness: rory richard is a 49 yoF primarily turks and ca[place] islander speaking who has pmhx of childhood asthma w/ inhalers at home who presents w/ acute SOB/verma. her last similar episode was 2 years ago. however today she became increasingly SOB after she woke up. she denies sick contacts, travel, BAILEY, dizziness, syncope, VERMA, fever or chills. she does report cough w/ phelgm , chest tightness and SOB. while in the ED she did receive back to back neb treatments w/ steroids w/ decadron. she reports improvement in breathing but that she is still SOB. she denies tobacco, etoh and drugs Allergies No Known Allergies Allergy (Verified 10/08/18 23:18) Home medications list reviewed: Yes Home Medications: Albuterol Inhaler [Ventolin Inhaler*] 2 puff IH Q6HP PRN 10/09/18 Albuterol Sulfate [Albuterol Sulfate 0.083% Neb Soln] 3 ml NEB BID PRN 10/09/18 - Past Medical/Surgical History Diabetic: No -: Intermittent asthma - Family History Mother -: Hypertension Father History Unknown: Yes - Social History Alcohol use: No CD- Drugs: No Caffeine use: Yes Review of Systems General: Unremarkable Eyes: Unremarkable ENT: Unremarkable Respiratory: Cough, Shortness of Breath, Wheezing, As per HPI Cardiovascular: Chest Pain, As per HPI Gastrointestinal: Unremarkable Musculoskeletal: Unremarkable Integumentary: Unremarkable Physical Examination - Physical Exam General: Alert, Oriented x3, Cooperative (currently on neb treatments), Mild distress HEENT: Atraumatic, PERRLA Neck: Supple Respiratory: Diminished, Other (significant wheezing throughout/ diminished aeration) Cardiovascular: No edema, No gallops, No murmurs, Other (tachycardia ) Capillary refill: <2 Seconds Gastrointestinal: Normal bowel sounds, Soft and benign, Non-distended, No tenderness, No guarding Musculoskeletal: No clubbing, No swelling, No contractures, No warmth Integumentary: No rashes, No breakdown Neurological: Normal speech, Other (gait not tested ) External genitalia: Deferred Rectal: Deferred - Studies Laboratory Data (last 24 hrs) 12/16/19 23:10: PT 13.5 H, INR 1.15 12/16/19 23:10: WBC 11.5 H, Hgb 12.6, Hct 38.0, Plt Count 202 12/16/19 23:10: Sodium 139, Potassium 3.4 L, BUN 8, Creatinine 0.80, Glucose 125 H, Magnesium 1.9, Total Bilirubin 0.4, AST 16, ALT 28, Alkaline Phosphatase 94 Microbiology Data (last 24 hrs): 12/16/19 23:19 Nasopharnyx Influenza Type A Antigen Screen - Final 12/16/19 23:19 Nasopharnyx Influenza Type B Antigen Screen - Final Assessment and Plan - Plan 49yoF admitted w/ asthma exacerbation c/w steroids, abx,scheduled and PRN nebs, o2 per protocol obtain a1c,tsh and lipid trend CE, start on IS RT to re-eval and consider Pulm eval if s/s do not improve f/u w/ cultures, respiratory distress - 2/2 to asthma exacerbation c/w supplmental o2, on tele c/w nebs, when able encourage to ambulate DVT - lovenox - Advance Directives Does patient have a Living Will: No Does patient have a Durable POA for Healthcare: No
[2019-12-17] MEDS ORDERED: POTASSIUM 25 MEQ EFFERV TAB ONE (00:19)
[2019-12-17] MEDS ORDERED: MAGNESIUM SULFATE 1 gm IVPB 1 GM/100 ML BAG IV ONE (00:19)
[2019-12-17] MEDS ORDERED: ONDANSETRON 4 MG/2 ML VIAL IV PRN (01:05)
[2019-12-17] MEDS ORDERED: ALBUTEROL 2.5 MG/3 ML NEB SOL NEB PRN (01:05)
[2019-12-17 01:19] VITALS: BMI 28.9
[2019-12-17] MEDS ORDERED: NA CHLORIDE 0.9% 1,000 ML IV SCH (02:00)
[2019-12-17] MEDS: ALBUTEROL 2.5 MG/3 ML NEB SOL NEB SCH ×4 (02:14→20:55)
[2019-12-17] MEDS: IPRATROPIUM BROM 0.5MG/2.5ML NEB SCH ×4 (02:14→20:55)
[2019-12-17 07:06] LABS: Protime INR 1.17
[2019-12-17 07:08] LABS: Absolute Lymphocytes (CBC) 0.8 K/uL (0.7-4.9); Basophils % 0.1 % (0-1.3); Lymphocytes % 7.8 % (15.3-44.8); MPV 9.9 fL (7.6-11.3); RBC Red Blood Cell Count 4.24 M/uL (3.86-4.86)
[2019-12-17 07:25] LABS: Albumin 3.2 g/dL (3.4-5.0); Bilirubin Total 0.3 mg/dL (0.2-1.0); Magnesium 2.5 mg/dL (1.8-2.4); Potassium 4.1 mmol/L (3.5-5.1); Protein, Total 7.3 g/dL (6.4-8.2); Thyroid Stimulating Hormone 0.543 uIU/mL (0.360-3.740)
[2019-12-17] MEDS: METHYLPREDNISOLONE 40 MG INJ IV SCH ×2 (08:23→16:26)
[2019-12-17 08:52] LABS: Blood Morphology Comment NOT SEEN (NOT SEEN); Platelet Estimate ADEQ; Urine White Blood Cell Casts OK
[2019-12-17 09:31] LABS: CKMB Creatine Kinase MB 4.2 ng/mL (0.3-3.6); Troponin I < 0.02 ng/mL (0.0-0.045)
--- NOTE | 2019-12-17 10:07 | P.PN ---
Subjective Date of Service: 12/17/19 Chief Complaint: asthma exacerbation Subjective: Improving (Patient is doing better history of poorly controlled asthma not on any steroid inhalers at home the min with the acute shortness of breath) Review of Systems General: Weakness Respiratory: Cough, Shortness of Breath Physical Examination - Vital Signs Temperature: 96.9 F Blood Pressure: 98/59 Pulse: 103 Respirations: 16 Pulse Ox (%): 93 - Physical Exam General: Alert, In no apparent distress, Oriented x3 Respiratory: Expiratory wheezes Cardiovascular: No edema, Regular rate/rhythm, Normal S1 S2 - Studies Laboratory Data (last 24 hrs) 12/16/19 23:10: PT 13.5 H, INR 1.15 12/16/19 23:10: WBC 11.5 H, Hgb 12.6, Hct 38.0, Plt Count 202 12/16/19 23:10: Sodium 139, Potassium 3.4 L, BUN 8, Creatinine 0.80, Glucose 125 H, Magnesium 1.9, Total Bilirubin 0.4, AST 16, ALT 28, Alkaline Phosphatase 94 Microbiology Data (last 24 hrs): 12/16/19 23:19 Nasopharnyx Influenza Type A Antigen Screen - Final 12/16/19 23:19 Nasopharnyx Influenza Type B Antigen Screen - Final Assessment & Plan - Problems (Diagnosis) (1) Asthma exacerbation Current Visit: Yes Status: Acute Plan: Patient is 49 years of age with a history of poorly controlled asthma admitted with an exacerbation continue with present medications discontinue antibiotics add Dulera possible discharge tomorrow on Dulera but will give her prescription for wixela and prednisone there is no clinical evidence of sepsis vital signs satisfactory oxygenation satisfactory Qualifiers: Asthma severity: moderate Discharge Plan: Home Plan to discharge in: 24 Hours
--- NOTE | 2019-12-17 11:30 | RAD REPORT ---
EXAM DESCRIPTION: RAD - Chest Single View - 12/16/2019 11:21 pm CLINICAL HISTORY: Cough;Congestion Chest pain. COMPARISON: Chest Single View dated 10/08/2018 FINDINGS: Portable technique limits examination quality. The lungs are grossly clear. The heart is normal in size. No displaced fractures. IMPRESSION: No acute intrathoracic process suspected.
[2019-12-17] MEDS: DULERA 200/5 (MOMETASONE/FORMOTEROL) INHALER IH SCH ×2 (12:41→21:00)
[2019-12-17 15:26] VITALS: O2SAT 93
[2019-12-17 16:26] LABS: Urine Appearance CLEAR; Urine Bilirubin NEGATIVE (NEG); Urine Blood TRACE (NEG); Urine Color YELLOW; Urine Glucose NEGATIVE (NEG); Urine Protein NEGATIVE (NEG); Urine Urobilinogen 0.2 mg/dL (0.2-1.0); Urine pH 7.5 (5.0-7.0)
[2019-12-17 16:43] LABS: Urine Microscopic Reflex ORDER UMIC
[2019-12-17 16:49] LABS: Urine Bacteria <20 /HPF (<20); Urine Culture Reflex Order NOT NEEDED; Urine RBC <5 /HPF (NONE SEEN)
[2019-12-17] MEDS ORDERED: AZITHROMYCIN IV 500 MG in NA CHLORIDE 0.9% 250 ML IVPB SCH (17:00)
[2019-12-17 17:52] LABS: Troponin I < 0.02 ng/mL (0.0-0.045)
[2019-12-17] MEDS ORDERED: CEFTRIAXONE 1 GM/NS 50 ML 1 GM/50 ML BAG IV SCH (18:00)
[2019-12-18] MEDS: METHYLPREDNISOLONE 40 MG INJ IV SCH ×2 (00:21→09:38)
[2019-12-18 01:36] LABS: Troponin I < 0.02 ng/mL (0.0-0.045)
[2019-12-18] MEDS: IPRATROPIUM BROM 0.5MG/2.5ML NEB SCH ×2 (02:15→08:45)
[2019-12-18] MEDS: ALBUTEROL 2.5 MG/3 ML NEB SOL NEB SCH ×2 (02:15→08:45)
[2019-12-18] MEDS: DULERA 200/5 (MOMETASONE/FORMOTEROL) INHALER IH SCH (09:00)
[2019-12-18] MEDS ORDERED: ACETAMINOPHEN 500 MG TAB PO PRN (09:41)
--- NOTE | 2019-12-18 09:43 | EKG ---
Test Date: 2019-12-16 Test Time: 23:06:20 Financial Aid Counselor: CHRISTY MEASUREMENT RESULTS: Intervals: Rate: 118 SC: 138 QRSD: 80 QT: 336 QTc: 470 Newell: P: 78 SC: 138 QRS: 83 T: 62 INTERPRETIVE STATEMENTS: Sinus tachycardia Possible Anterior infarct, age undetermined Abnormal ECG Compared to ECG 10/08/2018 20:39:37 Myocardial infarct finding now present Ventricular premature complex(es) no longer present Electronically Signed On 12-18-19 09:42:44 GOLF SUPERINTENDENT by Bay Hernandez
--- NOTE | 2019-12-18 10:04 | P.DS ---
Admission Date: 12/16/19 Discharge Date: 12/18/19 Disposition: ROUTINE DISCHARGE Discharge Condition: GOOD Reason for Admission: asthma exacerbation - Problems (1) Asthma exacerbation Current Visit: Yes Status: Acute Qualifiers: Asthma severity: moderate Brief History of Present Illness: Patient is 49 years of age with a poorly controlled asthma admitted with an exacerbation Hospital Course: Patient did well uncomplicated course laboratory data unremarkable chest x-ray clear At the time of discharge vital signs stable oxygenation satisfactory patient was feeling better daughter at the bedside chest slight wheezing cardiovascular system os sounds normal abdomen soft patient was given prescriptions of inhalers has been instructed to use long-acting beta agonists with inhaled steroids as baseline maintenance therapy in short-acting p.r.n. has been also been encouraged to follow up with me Vital Signs/Physical Exam: Temp Pulse Resp BP Pulse Ox 97.1 F 82 18 91/49 L 92 12/18/19 08:00 12/18/19 08:00 12/18/19 08:00 12/18/19 08:00 12/18/19 08:00 Laboratory Data at Discharge: WBC 10.1 K/uL (4.3-10.9) 12/17/19 06:53 Hgb 12.2 g/dL (12.0-15.0) 12/17/19 06:53 Hct 37.0 % (36.0-45.0) 12/17/19 06:53 Plt Count 201 K/uL (152-406) 12/17/19 06:53 PT 13.7 SECONDS (9.5-12.5) H 12/17/19 06:53 INR 1.17 12/17/19 06:53 Sodium 140 mmol/L (136-145) 12/17/19 06:53 Potassium 4.1 mmol/L (3.5-5.1) 12/17/19 06:53 BUN 9 mg/dL (7-18) 12/17/19 06:53 Creatinine 0.76 mg/dL (0.55-1.3) 12/17/19 06:53 Glucose 159 mg/dL (74-106) H 12/17/19 06:53 Magnesium 2.5 mg/dL (1.8-2.4) H D 12/17/19 06:53 Total Bilirubin 0.3 mg/dL (0.2-1.0) 12/17/19 06:53 AST 16 U/L (15-37) 12/17/19 06:53 ALT 28 U/L (12-78) 12/17/19 06:53 Alkaline Phosphatase 89 U/L (45-117) 12/17/19 06:53 Troponin I < 0.02 ng/mL (0.0-0.045) 12/18/19 00:56 Triglycerides 65 mg/dL (<150) 12/18/19 06:04 Cholesterol 131 mg/dL (<200) 12/18/19 06:04 HDL Cholesterol 46 mg/dL (40-60) 12/18/19 06:04 Cholesterol/HDL Ratio 2.85 12/18/19 06:04 Home Medications: Albuterol Inhaler [Ventolin Inhaler*] 2 puff IH Q6HP PRN 10/09/18 Albuterol Sulfate [Albuterol Sulfate 0.083% Neb Soln] 3 ml NEB BID PRN 10/09/18 Fluticasone Propion/Salmeterol [Wixela 250-50 Inhub] 1 each IH BID 30 Days #1 blst.w.dev 12/18/19 Mometasone/Formoterol [Dulera 200 Mcg/5 Mcg Inhaler] 2 puff IH BID 30 Days #1 inhaler 12/18/19 Prednisone [Sterapred Ds] 10 mg PO BID #20 tab.ds.pk 12/18/19 New Medications: Fluticasone Propion/Salmeterol [Wixela 250-50 Inhub] 1 each IH BID 30 Days #1 blst.w.dev Mometasone/Formoterol [Dulera 200 Mcg/5 Mcg Inhaler] 2 puff IH BID 30 Days #1 inhaler Prednisone [Sterapred Ds] 10 mg PO BID #20 tab.ds.pk Patient Discharge Instructions: Patient to take either wixela or Dulera not both prescriptions for prednisone inhalers have been faxed Diet: Regular Activity: Ad chikis Followup: Carlin Mckinnon MD [ACTIVE - CAN ADMIT] -
[2019-12-18 12:11] VITALS: BP 91/51; TEMP 97.4
== END 2019-12-18 12:44 | disposition home or self-care (01) | DRG 203 ==
LOC: ER 22:29 → ERHOLD 23:57 → 4TH 12-17 00:32
PROVIDERS: ADMIT Internal Medicine; ATTEND Internal Medicine
DX: J45.41 Moderate persistent asthma with (acute) exacerbation (principal); R06.03 Acute respiratory distress
CPT/HCPCS: 36415; 71045; 80048; 80053; 80061; 80076; 81003; 81015; 82553; 83036; 83735; 83880; 84443; 84484; 85025; 85610; 87040; 87804; 93005; 94640; 94760; 96365; 96368; 96375; 99285; J0456; J0696; J1100; J2920; J3475; J7030; J7606

== ENCOUNTER 2022-11-19 11:16 | Emergency (ER) | payer SELFPAY ==
[2022-11-19 12:32] LABS: SARS-COV-2 RT PCR NEGATIVE (NEGATIVE)
--- NOTE | 2022-11-19 13:13 | RAD REPORT ---
EXAM DESCRIPTION: RAD - Chest Single View - 11/19/2022 12:54 pm CLINICAL HISTORY: COUGH COMPARISON: Portable 12/16/2019 and 10/08/2018 TECHNIQUE: AP portable chest image was obtained 11/19/2022 12:54 pm . FINDINGS: No focal consolidations seen. No acute failure or volume overload. Lung markings are fract ionally more prominent in the right base. This is not substantially different from comparison but cou ld be minimal interstitial infiltrate. This would need correlation with clinical findings. Heart and vasculature are normal. No measurable pleural effusion and no pneumothorax. No acute bony abnormality seen. No acute aortic findings suspected. IMPRESSION: No mass, consolidation or significant pulmonary edema finding. Fractionally increased interstitial markings in the right base could be minimal infiltrate. This need s correlation with clinical exam findings and history.
[2022-11-19] MEDS ORDERED: HYDROCODONE/CHLORPHEN 5 ML/OSYR ONE (13:53)
[2022-11-19] MEDS ORDERED: IPRATROPIUM BROM 0.5MG/2.5ML ONE (13:54)
[2022-11-19] MEDS ORDERED: dexAMETHasone 10 MG/ML VIAL ONE (13:54)
[2022-11-19] MEDS ORDERED: ALBUTEROL 2.5 MG/3 ML NEB SOL ONE (13:55)
[2022-11-19] MEDS ORDERED: LIDOCAINE 1% MPF 2 ML AMPULE ONE (14:06)
[2022-11-19] MEDS ORDERED: CEFTRIAXONE 1000 MG/VIAL ONE (14:06)
--- NOTE | 2022-11-19 14:42 | ER ---
Nurse's Notes [facility] Name: Katelyn Calderón Age: 52 yrs Sex: Female : 1970 Arrival Date: 11/19/2022 Time: 11:25 Bed 10 Private MD: Diagnosis: COPD/ Chronic obstructive pulmonary disease, unspecified Presentation: 11/19 11:40 Chief complaint: Patient states: shortness of breath, congestion and cough that began 3 ss days ago. Denies fever. Coronavirus screen: Client presents with at least one sign or symptom that may indicate coronavirus-19. Ebola Screen: Patient denies exposure to infectious person. Patient denies travel to an Ebola-affected area in the 21 days before illness onset. Initial Sepsis Screen: Does the patient meet any 2 criteria? No. Patient's initial sepsis screen is negative. Does the patient have a suspected source of infection? No. Patient's initial sepsis screen is negative. Risk Assessment: Do you want to hurt yourself or someone else? Patient reports no desire to harm self or others. Onset of symptoms was November 16, 2022. 11:40 Method Of Arrival: EMS: [facility] ss 11:40 Acuity: ZAK 3 ss 11:42 Note EMS reports that RA O2 was 88% upon RA. ss Triage Assessment: 14:48 Respiratory: Onset: The symptoms/episode began/occurred gradually, the patient has mild ph shortness of breath. 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 - Social history:: Smoking status: Patient denies any tobacco usage or history of. Screenin:47 [facility] ED Fall Risk Assessment (Adult) History of falling in the last 3 months, ph including since admission No falls in past 3 months (0 pts) Confusion or Disorientation No (0 pts) Intoxicated or Sedated No (0 pts) Impaired Gait No (0 pts) Mobility Assist Device Used No (0 pt) Altered Elimination No (0 pt) Score/Fall Risk Level 0 - 2 = Low Risk Oriented to surroundings, Maintained a safe environment. Abuse screen: Denies threats or abuse. Denies injuries from another. Nutritional screening: No deficits noted. Tuberculosis screening: No symptoms or risk factors identified. Assessment: 13:00 General: Appears in no apparent distress. comfortable, well groomed, Behavior is calm, ph cooperative, appropriate for age. Pain: Denies pain. Neuro: Level of Consciousness is awake, alert, obeys commands, Oriented to person, place, time, situation. Cardiovascular: Rhythm is regular. Respiratory: Reports shortness of breath cough that is Airway is patent Respiratory effort is even, unlabored, Breath sounds with wheezes. Derm: Skin is healthy with good turgor, Skin is pink, warm \T\ dry. Vital Signs: 11:40 BP 109 / 53; Pulse 108; Resp 16; Temp 98.1(O); Pulse Ox 94% ; Weight 63.5 kg; Height 5 ss ft. 2 in. (157.48 cm); Pain 0/10; 12:40 BP 105 / 66; Pulse 84; Resp 18; Temp 99.2(O); Pulse Ox 98% on R/A; mm9 15:17 BP 103 / 69; Pulse 89; Resp 18; Temp 97.9; Pulse Ox 97% on R/A; ph 11:40 Body Mass Index 25.61 (63.50 kg, 157.48 cm) ss ED Course: 11:25 Patient arrived in ED. ss 11:42 Triage completed. ss 11:42 Arm band placed on right wrist. ss 12:38 Robin Rose NP is PHCP. pm1 12:38 Benito Sigala MD is Attending Physician. pm1 12:40 Patient has correct armband on for positive identification. Bed in low position. Call mm9 light in reach. Adult w/ patient. Pulse ox on. NIBP on. 12:41 COVID swab sent to lab. Flu and/or RSV swab sent to lab. mm9 12:45 Rose Noonan, RN is Primary Nurse. ph 12:56 XRAY Chest (1 view) In Process Unspecified. EDMS 14:49 No provider procedures requiring assistance completed. Patient did not have IV access ph during this emergency room visit. Administered Medications: 14:02 Drug: Albuterol - atroVENT (ipratropium) (3:1) (2.5 mg - 0.5 mg) 3 ml Route: Nebulizer; ph 14:45 Follow up: Response: No adverse reaction ph 14:02 Drug: Decadron (dexamethasone) 10 mg Route: IM; Site: right deltoid; ph 14:45 Follow up: Response: No adverse reaction ph 14:02 Drug: Tussionex Pennkinetic ER (chlorpheniramine-hydrocodone) Suspension 5 ml Route: PO;ph 14:45 Follow up: Response: No adverse reaction ph 14:42 Drug: Rocephin (cefTRIAXone) 1 grams Route: IM; Site: right vastus lateralis; ph 15:17 Follow up: Response: No adverse reaction ph Medication: 15:17 VIS not applicable for this client. ph Outcome: 14:41 Discharge ordered by MD. pm1 15:17 Discharged to home ambulatory, with family. ph 15:17 Condition: good 15:17 Discharge instructions given to patient, family, Instructed on discharge instructions, follow up and referral plans. medication usage, Demonstrated understanding of instructions, follow-up care, medications, Prescriptions given X x 5 15:19 Patient left the ED. ph Signatures: Dispatcher [employer] EDOK Lulu Marcial RN RN ss Hall, Patricia, RN RN ph Marinas, Patrick, ALONSO MANAGER COMMISSION pm1 Amanda Valentino mm9
--- NOTE | 2022-11-19 14:42 | EDPHYS ---
Physician Documentation [facility] Name: Katelyn Calderón Age: 52 yrs Sex: Female : 1970 Arrival Date: 11/19/2022 Time: 11:25 Bed 10 Private MD: ED Physician Beinto Sigala HPI: 11/19 13:06 This 52 yrs old Female presents to ER via EMS with complaints of Breathing pm1 Difficulty. 13:06 The patient has shortness of breath at rest. Onset: The symptoms/episode began/occurred pm1 3 day(s) ago. Duration: The symptoms are continuous. The patient's shortness of breath is aggravated by nebulizer machine is not working well, is alleviated by nothing. Associated signs and symptoms: Pertinent negatives: chest pain, fever, sore throat. Severity of symptoms: in the emergency department the symptoms are unchanged. The patient has experienced similar episodes in the past, history ot chronic bronchitis. Patient with flare up. The patient has not recently seen a physician. 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 - Social history:: Smoking status: Patient denies any tobacco usage or history of. ROS: 13:06 Constitutional: Negative for fever, chills, and weight loss, Cardiovascular: Negative pm1 for chest pain, palpitations, and edema. 13:06 Abdomen/GI: Negative for abdominal pain, nausea, vomiting, diarrhea, and constipation, Back: Negative for injury and pain, MS/Extremity: Negative for injury and deformity, Skin: Negative for injury, rash, and discoloration, Neuro: Negative for headache, weakness, numbness, tingling, and seizure. 13:06 Respiratory: Positive for shortness of breath, wheezing, Negative for cough, sputum production. 13:06 All other systems are negative. Exam: 13:06 Constitutional: This is a well developed, well nourished patient who is awake, alert, pm1 and in no acute distress. Head/Face: Normocephalic, atraumatic. 13:06 Back: No spinal tenderness. No costovertebral tenderness. Full range of motion. Skin: Warm, dry with normal turgor. Normal color with no rashes, no lesions, and no evidence of cellulitis. MS/ Extremity: Pulses equal, no cyanosis. Neurovascular intact. Full, normal range of motion. 13:06 Eyes: Exam is negative for acute changes, Extraocular movements: no acute changes, Conjunctiva: no acute changes, no injection. 13:06 ENT: Exam is negative for acute changes, Mouth: no acute changes, Lips: normal, moist, Oral mucosa: normal, pink and intact, moist. 13:06 Cardiovascular: Exam negative for acute changes, Rate: normal, Rhythm: regular, Pulses: no pulse deficits are appreciated, Heart sounds: normal, normal S1and S2. 13:06 Respiratory: the patient does not display signs of respiratory distress, Respirations: normal, Breath sounds: wheezing: expiratory that is mild, is heard diffusely. 13:06 Neuro: Exam negative for acute changes, Orientation: is normal, Mentation: is normal, Motor: is normal, moves all fours, Gait: is steady, at a normal pace, without difficulty. 14:38 Respiratory: Exam negative for acute changes, the patient does not display signs of pm1 respiratory distress, Respirations: normal, Breath sounds: are clear throughout. Vital Signs: 11:40 BP 109 / 53; Pulse 108; Resp 16; Temp 98.1(O); Pulse Ox 94% ; Weight 63.5 kg; Height 5 ss ft. 2 in. (157.48 cm); Pain 0/10; 12:40 BP 105 / 66; Pulse 84; Resp 18; Temp 99.2(O); Pulse Ox 98% on R/A; mm9 15:17 BP 103 / 69; Pulse 89; Resp 18; Temp 97.9; Pulse Ox 97% on R/A; ph 11:40 Body Mass Index 25.61 (63.50 kg, 157.48 cm) ss MDM: 12:38 Patient medically screened. pm1 13:55 Data reviewed: vital signs. Data interpreted: Pulse oximetry: on room air is 98 %. pm1 Interpretation: normal. 14:39 Counseling: I had a detailed discussion with the patient and/or guardian regarding: the pm1 historical points, exam findings, and any diagnostic results supporting the discharge/admit diagnosis, lab results, radiology results, the need for outpatient follow up, to return to the emergency department if symptoms worsen or persist or if there are any questions or concerns that arise at home. 14:49 ED course: [place] reviewed. pm1 11/19 11:45 Order name: COVID-19/FLU A+B; Complete Time: 12:38 ss 11/19 11:45 Order name: XRAY Chest (1 view); Complete Time: 13:48 ss Administered Medications: 14:02 Drug: Albuterol - atroVENT (ipratropium) (3:1) (2.5 mg - 0.5 mg) 3 ml Route: Nebulizer; ph 14:45 Follow up: Response: No adverse reaction ph 14:02 Drug: Decadron (dexamethasone) 10 mg Route: IM; Site: right deltoid; ph 14:45 Follow up: Response: No adverse reaction ph 14:02 Drug: Tussionex Pennkinetic ER (chlorpheniramine-hydrocodone) Suspension 5 ml Route: PO;ph 14:45 Follow up: Response: No adverse reaction ph 14:42 Drug: Rocephin (cefTRIAXone) 1 grams Route: IM; Site: right vastus lateralis; ph 15:17 Follow up: Response: No adverse reaction ph Disposition: 18:05 Co-signature as Attending Physician, Benito Sigala MD I agree with the assessment and rt plan of care. Disposition Summary: 11/19/22 14:41 Discharge Ordered Location: Home pm1 Problem: new pm1 Symptoms: have improved pm1 Condition: Stable pm1 Diagnosis - COPD/ Chronic obstructive pulmonary disease, unspecified pm1 Followup: pm1 - With: Emergency Department - When: As needed - Reason: Worsening of condition Followup: pm1 - With: Private Physician - When: 2 - 3 days - Reason: Recheck today's complaints, Continuance of care, Re-evaluation by your physician Discharge Instructions: - Discharge Summary Sheet pm1 - Chronic Bronchitis, Adult pm1 - Chronic Obstructive Pulmonary Disease pm1 Forms: - Medication Reconciliation Form pm1 - Thank You Letter pm1 - Antibiotic Education pm1 - Prescription Opioid Use pm1 Prescriptions: - Nebulizer Machine - inhale 1 ampule by INHALATION route every 8 hours As needed Please dispense one pm1 nebulizer machine; 1 Device; Refills: 0, Product Selection Permitted - Prednisone 20 mg Oral Tablet - take 3 tablets by ORAL route once daily for 5 days; 15 tablet; Refills: 0, pm1 Product Selection Permitted - Albuterol Sulfate 2.5 mg /3 mL (0.083 %) Inhalation Solution for Nebulization - inhale 1 unit by NEBULIZATION route every 8 hours As needed; 1 box; Refills: 0, pm1 Product Selection Permitted - Zithromax Z-Brooks 250 mg Oral Tablet - take 1 tablet by ORAL route as directed for 5 days Day 1 - take two (2) tablets pm1 one time. Day 2, 3, 4 , 5 take one (1) tablet once daily.; 6 tablet; Refills: 0, Product Selection Permitted - Guaifenesin AC 10-100 mg/5 mL Oral Liquid - take 10 milliliters by ORAL route every 4 hours As needed; 240 milliliter; pm1 Refills: 0, Product Selection Permitted Signatures: Dispatcher [employer] EDNM Lulu Marcial RN RN Rose Noonan RN RN ph Robin Rose, ALONSO CONFERENCE PLANNING MANAGER pm1 Benito Sigala MD MD rt Corrections: (The following items were deleted from the chart) 14:39 13:06 Respiratory: Exam negative for acute changes, respiratory distress, shortness of pm1 breath, Breath sounds: wheezing: expiratory that is mild, is heard diffusely, pm1
[2022-11-19 15:38] VITALS: BP 103/69; TEMP 97.9; O2SAT 97
== END 2022-11-19 15:19 | disposition home or self-care (01) ==
LOC: ER 11:16
DX: J44.1 Chronic obstructive pulmonary disease with (acute) exacerbation (principal); Z20.822 Contact with and (suspected) exposure to COVID-19
CPT/HCPCS: 0240U; 71045; J1100; J7613; J7644